=== PATIENT | male | born 1975 | race Caucasian/White ===

== ENCOUNTER 2016-09-20 12:03 | Emergency (ER) | payer SELFPAY ==
[2016-09-20] MEDS ORDERED: Morphine INJ* 4 MG/ML 1 ML SYRINGE IV ONE ×2 (13:12→13:35)
[2016-09-20] MEDS ORDERED: Ondansetron INJ* 2 MG/ML VIAL IV ONE (13:12)
[2016-09-20 13:20] LABS: Hematocrit 49 % (42-52); Hemoglobin 16.3 g/dl (14.0-18.0); Mean Corpuscular HGB Conc 34 g/dl (31-36); Mean Corpuscular Hemoglobin 34 pg (27-31); Mean Corpuscular Volume 102 fL (80-94); Mean Platelet Volume 9 um3 (7.4-10.4); Red Blood Count 4.75 10^6/ul (4.0-5.4); Red Cell Distribution Width 14 % (10.5-15); White Blood Count 11.1 10^3/ul (3.5-10.8)
[2016-09-20 13:34] LABS: Albumin 4.6 g/dL (3.2-5.2); BUN/Creatinine Ratio 11.3 (8-20); Calcium 8.9 mg/dL (8.6-10.3); EGFR African American 98.5 (>60); EGFR Non-African American 76.6 (>60); Globulin 2.7 g/dL (2-4); Potassium 3.5 mmol/L (3.5-5.0); Total Bilirubin 0.7 mg/dL (0.2-1.0); Total Protein 7.3 g/dL (6.4-8.9)
[2016-09-20] MEDS ORDERED: Iohexol 300* (CONTRAST) 10 ML SDV IV ONE (13:36)
[2016-09-20] MEDS ORDERED: HYDROmorphone* 2 MG/ML 1 ML SYR IV SLOW PU ONE (14:00)
[2016-09-20] MEDS ORDERED: NS 0.9% 1000 ML* 1,000 ML IV ONE (14:01)
--- NOTE | 2016-09-20 14:22 | RAD ---
Indication: Right knee pain. 4 views of the right knee demonstrates vertical fracture through the lateral tibial plateau with depression of the lateral tibial plateau. Joint effusion is noted. IMPRESSION: Fracture with depression of the lateral tibial plateau.
--- NOTE | 2016-09-20 14:23 | RAD ---
INDICATION: Head injury. COMPARISON: There are no prior studies available for comparison. TECHNIQUE: Contiguous axial sections of the brain were obtained from the skull base to the vertex without contrast. FINDINGS: The ventricles, cisterns and sulci are within normal limits. No significant focal abnormality or mass effect is seen. There is no evidence for hemorrhage. No significant focal osseous abnormality is seen. The visualized portion of the paranasal sinuses and mastoid air cells appear clear. IMPRESSION: NO EVIDENCE FOR ACUTE INTRACRANIAL ABNORMALITY.
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
[2016-09-20] MEDS ORDERED: Ketorolac INJ* 30 MG/ML 1 ML VIAL IV PUSH ONE (15:48)
[2016-09-20 16:38] VITALS: BP 139/79
== END 2016-09-20 17:00 | disposition home or self-care (01) ==
LOC: ED 12:03
DX: R10.9 Unspecified abdominal pain (principal); S82.141A Displaced bicondylar fracture of right tibia, initial encounter for closed fracture; S20.212A Contusion of left front wall of thorax, initial encounter; S09.91XA Unspecified injury of ear, initial encounter; R07.9 Chest pain, unspecified; Y09 Assault by unspecified means; Y93.9 Activity, unspecified; Y92.89 Other specified places as the place of occurrence of the external cause; F17.210 Nicotine dependence, cigarettes, uncomplicated
CPT/HCPCS: 36415; 70450; 71260; 74177; 80053; 85025; 85610; 85730; 86850; 86900; 86901; 96374; 96375; 99283; J1170; J1885; J2270; J2405; Q9967